=== PATIENT | male | born 1985 | race Hispanic/Latino ===

== ENCOUNTER 2018-12-13 02:42 | Emergency (ER) | payer OTHER ==
[2018-12-13 02:59] VITALS: RESP 16; O2SAT 100
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
[2018-12-13 04:08] VITALS: BP 127/58; PULSE 78; TEMP 98.2
--- NOTE | 2018-12-13 11:05 | RAD ---
Date of service: 12/13/2018 PROCEDURE: Right Ankle Radiographs. HISTORY: trauma COMPARISON: None available. FINDINGS: BONES: No acute fracture. JOINTS: Ankle mortise maintained. Talar dome intact SOFT TISSUES: Medial malleolar soft tissue swelling OTHER FINDINGS: Small ankle joint effusion IMPRESSION: Medial malleolar soft tissue swelling and small ankle joint effusion without demonstrated fracture or dislocation.
== END 2018-12-13 04:10 | disposition home or self-care (01) ==
LOC: H.ER 02:42
DX: S99.911A Unspecified injury of right ankle, initial encounter (principal); X58.XXXA Exposure to other specified factors, initial encounter; Y99.0 Civilian activity done for income or pay